=== PATIENT | female | born 2000 | race Caucasian/White ===

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

== ENCOUNTER → 2020-09-18 | Outpatient (CLI) | payer OTHER ==
[~2020-09-18] MED LIST: ACET325C5 PO; FLUCONAZOLE 50MG TABLET PO ONE; PRENTAB9 PO; TUMS500C PO
--- NOTE | 2020-09-18 15:57 | REP ---
INDICATION: GROWTH, SIZE LESS THEN DATES COMPARISON: None. TECHNIQUE: Transabdominal obstetrical ultrasound with color Doppler evaluation. FINDINGS: Examination demonstrates a single live intrauterine in cephalic presentation. motion is identified by technologist. Placenta is noted posterior and grade 2 without evidence for placenta previa or abruption. Amniotic fluid volume is normal. RADHA: 15.4 cm (7.3-24.0) Umbilical artery SD ratio: 2.66 (1.55-3.77) Gestational age by LMP 37 weeks [address] 10/03/2020. Gestational age by current measurements 34 weeks [address] 10/25/2020. FHR equals 155 beats per minute. Estimated weight 2538 grams (14thpercentile). IMPRESSION: Single live intrauterine in cephalic presentation. Estimated weight remains within normal range. <Electronically signed by Candelario Perez > 09/18/20 [id number]
== END ==
LOC: M RAD 14:27
PROVIDERS: ATTEND Obstetrics & Gynecology
DX: Z34.03 Encounter for supervision of normal first pregnancy, third trimester (principal); Z3A.34 34 weeks gestation of pregnancy

== ENCOUNTER 2020-09-19 07:00 | Inpatient (IN) | payer OTHER ==
[2020-09-19] VITALS (15 sets, daily range): BP systolic 103–148; BP diastolic 61–94
[~2020-09-19] VITALS: Ht 162.6 cm; Wt 57.6 kg
[2020-09-19] MEDS ORDERED: ACET325C5 PO (07:24)
[2020-09-19] MEDS ORDERED: PRENTAB9 PO (07:24)
[2020-09-19] MEDS ORDERED: TUMS500C PO (07:25)
--- NOTE | 2020-09-19 07:25 | HPEPDOC ---
Obstetrical History & Physical General Date of Admission Sep 19, 2020 at 07:00 History of Present Illness Ms. Newton is a 19yo at 38+0 with FGR diagnosed yesterday on [facility] scan meeti ng criteria for AC at 8%ile. She has had a downtrend in growth throughout her and has had close monitoring. Today she denied n/v/d, cp, sob, erickson, visual changes, f/c, vaginal bleeding, discharge, urinary sx, decreased FM, contractions, or LOF. Antepartum Course Pre- weight (lbs.): 110 Admission Weight (lbs.): 125 Change in Weight (lbs.): 15 Past Medical History Past Obstetrical History : Past Obstetrical History: [employer] History: History of STD (during ) Past Medical History Medical History depression Surgical History: Denies/None Family History Family History adopted, unknown family history Social History Family situation: Spouse/partner home Psychosocial History: No pertinent psych hx * Smoker: non-smoker Alcohol: Denies Drugs: denies Imunizations Tdap status: current Influenza Status: current Allergies Coded Allergies: azithromycin (Verified Allergy, Mild, 09/19/20) HIVES Medications Scheduled Calcium Carbonate (Tums) 200 Mg Tab.chew, 2 TAB PO QID for cough and congestion No.137/Iron/Folic Acd ( Vitamin Tablet) 1 Each Tablet, 1 TAB PO DAILY Miscellaneous Medications Acetaminophen (Tylenol) 325 Mg Capsule, 325 MG PO Physical Examination Physical Examination GENERAL: Alert and oriented times three. BREAST: . ABDOMEN: Gravid and non-tender to touch. FETUS: Is vertex (VTX) by sterile vaginal examination (SVE), fetus is vertex (VTX) by ultrasound HEART RATE: Regular rate and rhythm. LUNGS: Clear to auscultation (CTA). EXTREMITIES: No edema. No clonus. Laboratory Data Urine Culture: No Growth Pertinent Laboratoy Data Blood Type: A+ RBC Antibody Screen: Negative HIV: Negative Hepatitis B: Negative Rapid Plasma Reagin: Nonreactive Rubella: Immune Varicella: Immune Chlamydia/Gonorrhea: Positive Group B Streptococcus: Negative Cystic Fibrosis: Negative Anatomy Ultrasound Placenta Location: Anterior (fundal) Normal Anatomy: Yes Estimated Weight (grams): 2538 Steroid Therapy Steroid Therapy: No Vaginal Examination Dilation: 1cm Station: -3 Cervical Consistency: Firm Cervical Position: Posterior Presentation: Cephalic presentation (by US) Tocometer Multi-drug resistant Organism: No history of MDRO Assessment/Plan Assessment Ms. Newton is a 19yo at 38+0 with FGR diagnosed yesterday on [facility] scan meeting criteria for AC at 8%ile (SD 2.66) presents for IOL. She has had a downtrend in growth throughout her and has had close monitoring. CAT I tracing, reactive normal VS. 1/T/H plan for DLFB and augmentation with cytotec if indicated. APC 1. depression on zoloft 2. elevated early 1h GTT 3. allergy to azithromycin 4. gonorrhea and chlamydia during with negative test of cure 5. intrapartum mastitis s/p treatment Rh pos, GBS neg, placenta fundal posteiror, EFW 2538g, ceph by US Plan Admit and orient. It Auditor and consent. Diet: clears Group B Streptococcus (GBS) [negative]. Labs and intravenous (IV) per unit protocol. Counseled on Pitocin and induction of labor (IOL). Anticipate [normal spontaneous delivery ()]. C-S as appropriate. NANCY GROVE DO Sep 19, 2020 07:25
[2020-09-19 10:11] LABS: HEMATOCRIT 35.6 % (36.0-47.0); HEMOGLOBIN 11.4 g/dl (12.0-15.5); MEAN CORPUSCULAR VOLUME 87.5 fl (80.0-96.0); PLATELET COUNT, AUTOMATED 191 10^3/uL (150-450); RED BLOOD COUNT 4.07 10^6/uL (4.00-5.40); WHITE BLOOD COUNT 7.8 10^3/uL (4.0-10.0)
[2020-09-19] MEDS ORDERED: miSOPROStol 50MCG 1/2 TABLET PO ONE (11:30)
--- NOTE | 2020-09-19 12:18 | IPNPDOC ---
Text Note Date of Service The patient was seen on 09/19/20. NOTE Patient admitted IOL due to 8% weight slowly decreasing over monitoring period s/d ratio normal . contractions spaced with category 1 strip . pelvic examination 1 cm posterior 50% effaced -3 station thick. plan is to administer Po Cytotec 50 mg 1 dose reassessment 4 hours VS,Fishbone, I+O VS, Fishbone, I+O Item Value Date Time White Blood Count 7.8 10^3/uL 09/19/20 0953 Red Blood Count 4.07 10^6/uL 09/19/20 0953 Hemoglobin 11.4 g/dl L 09/19/20 0953 Hematocrit 35.6 % L 09/19/20 0953 Mean Corpuscular Volume 87.5 fl 09/19/20 0953 Mean Corpuscular Hemoglobin 28.0 pg 09/19/20 0953 Mean Corpuscular Hemoglobin Concent 32.0 g/dl 09/19/20 0953 Red Cell Distribution Width 13.5 % 09/19/20 0953 Platelet Count 191 10^3/uL 09/19/20 0953 Nucleated Red Blood Cells % (auto) 0.0 % 09/19/20 0953 Laboratory Tests 09/19/20 09:53 Vital Signs Date Time Temp Pulse Resp B/P (MAP) Pulse Ox O2 Delivery O2 Flow Rate FiO2 09/19/20 08:45 98.3 93 18 116/71 (86) Rashaun Ibarra MD Sep 19, 2020 12:18
--- NOTE | 2020-09-19 16:00 | IPNPDOC ---
Text Note Date of Service The patient was seen on 09/19/20. NOTE 09/19/20 1547 PM review of progress. had misoprostol 50 mg Po 4 hours ago now cervix soft no change in dilation category 1 strip contractions spaced out q 5 minutes . reviewed Pitocin augmentation . still difficult for Mcneil's catheter. expressed understanding safe to proceed VS,Ramonebone, I+O VS, Fishbone, I+O Laboratory Tests 09/19/20 09:53 Vital Signs Date Time Temp Pulse Resp B/P (MAP) Pulse Ox O2 Delivery O2 Flow Rate FiO2 09/19/20 08:45 98.3 93 18 116/71 (86) Rashaun Ibarra MD Sep 19, 2020 15:54
[2020-09-19] MEDS ORDERED: OXYTOCIN DRIP 30 UNITS in IV 1 EA IV SCH (16:15)
[2020-09-19] MEDS: LR 1,000 ML IV SCH (17:13)
[2020-09-19] MEDS ORDERED: LR 1,000 ML IV ONE (19:05)
--- NOTE | 2020-09-19 19:08 | IPNPDOC ---
Text Note Date of Service The patient was seen on 09/19/20. NOTE 1900 hours occasional episodes tachysystole on 2 munits Pitocin, category 1 strip approached patient with Mcneil's catheter 60 ml uterine 40 ml cervix . safe to proceed VS,Eden, I+O VS, Eden, I+O Laboratory Tests 09/19/20 09:53 Vital Signs Date Time Temp Pulse Resp B/P (MAP) Pulse Ox O2 Delivery O2 Flow Rate FiO2 09/19/20 08:45 98.3 93 18 116/71 (86) Rashaun Ibarra MD Sep 19, 2020 19:08
[2020-09-19] MEDS ORDERED: PROMETHAZINE INJ 25 MG/ML VIAL (J2550) IV ONE (20:20)
[2020-09-19] MEDS ORDERED: BUTORPHANOL 2 MG/ML INJ (J0595) IV ONE (20:20)
[2020-09-19] MEDS ORDERED: FENTANYL 2MCG/ML ROPIVACAINE 0.2% IN 0.9% NACL 100ML IVBAG As Ordered ONE (23:24)
[2020-09-20] VITALS (37 sets, daily range): BP systolic 99–148; BP diastolic 54–98
[2020-09-20] MEDS ORDERED: ePHEDrine SULFATE 25 MG/5 ML(5MG/ML) SYRINGE IV PRN (00:45)
[2020-09-20] MEDS ORDERED: diphenhydrAMINE 50MG/ML VIAL (J1200) IV PRN (00:45)
[2020-09-20] MEDS ORDERED: LACTATED RINGER'S 1000 ML IV PRN (00:45)
[2020-09-20] MEDS ORDERED: EPIDURAL COMMENT XX SCH (00:45)
[2020-09-20] MEDS ORDERED: FENTANYL/ROPIVACAINE/NACL BAG 100 ML EPIDURAL SCH (00:45)
[2020-09-20] MEDS ORDERED: NALOXONE INJ 0.4MG/1ML VIAL (J2310 PER 1MG) IV PRN (00:45)
[2020-09-20] MEDS ORDERED: ONDANSETRON 4MG/2ML VIAL IV PRN (00:45)
[2020-09-20] MEDS ORDERED: REFRIGERATOR IV KEYS XX PRN (00:45)
[2020-09-20] MEDS ORDERED: EPIDURAL/PCA KEYS XX PRN (00:45)
[2020-09-20] MEDS: LR 1,000 ML IV SCH (01:05)
--- NOTE | 2020-09-20 04:30 | IPNPDOC ---
Text Note Date of Service The patient was seen on 09/20/20. NOTE 07/23/20 0430 am Mcneil's catheter removed , cervix anterior 2-3 cm soft -2 s tation ot position AROM clear fluid category 1 strip . safe to proceed VS,Fishbone, I+O VS, Fishbone, I+O Laboratory Tests 09/19/20 09:53 Vital Signs Date Time Temp Pulse Resp B/P (MAP) Pulse Ox O2 Delivery O2 Flow Rate FiO2 09/20/20 00:47 83 110/71 (84) 09/20/20 00:35 15 09/19/20 15:30 97.8 I&O- Last 24 Hours up to 6 AM 09/20/20 06:00 Intake Total 1000 ml Output Total 850 ml Balance 150 ml Rashaun Ibarra MD Sep 20, 2020 04:30
--- NOTE | 2020-09-20 07:58 | IPNPDOC ---
Text Note Date of Service The patient was seen on 09/20/20. NOTE 09/20/2020 0800 evaluation post AROM AND PITOCIN AT [address] RIP, 4 CM ANTERIOR 100% EFFACED -1 STATION WELL APPLIED . SAFE TO PROCEED VS,Fishbone, I+O VS, Fishbone, I+O Laboratory Tests 09/19/20 09:53 Vital Signs Date Time Temp Pulse Resp B/P (MAP) Pulse Ox O2 Delivery O2 Flow Rate FiO2 09/20/20 06:26 71 124/71 (88) 09/20/20 00:35 15 09/19/20 15:30 97.8 I&O- Last 24 Hours up to 6 AM 09/20/20 06:00 Intake Total 1000 ml Output Total 850 ml Balance 150 ml Rashaun Ibarra MD Sep 20, 2020 07:58
[2020-09-20 10:13] LABS: CORD GAS HCO3 A 17.4 MEQ/L; CORD GAS O2 SAT A 94.2 %; CORD GAS PCO2 A 29.1 mmHg; CORD GAS PH A 7.394 UNITS; CORD GAS PO2 A 52.9 mmHg; CORD GAS SBC A 19.6 MEQ/L; CORD GAS TCO2 A 18.3 MEQ/L
[2020-09-20 10:17] LABS: CORD GAS ABE V -5.5; CORD GAS HCO3 V 17.9 MEQ/L; CORD GAS O2 SAT V 88.1 %; CORD GAS PCO2 V 29.7 mmHg; CORD GAS PH V 7.397 UNITS; CORD GAS PO2 V 40.6 mmHg; CORD GAS SBC V 19.8 MEQ/L; CORD GAS TCO2 V 18.8 MEQ/L
--- NOTE | 2020-09-20 10:53 | DNPDOC ---
[facility] Delivery Note Delivery Note DATE OF DELIVERY: 09/20/2020 PREDELIVERY DIAGNOSIS: 38.0 weeks' gestation iol re sga at 8% POST DELIVERY DIAGNOSIS: Delivered. PROCEDURE: [Spontaneous vaginal delivery P[employer]ER [employer] P[employer]P MILL WORKER: ANESTHESIA: IV MEDS , EPIDURAL ESTIMATED BLOOD LOSS: 200 mL. FINDINGS: 5 pound 10 ounce FEMALE Score 9/9 , nuchal cord 0 DELIVERY SUMMARY: Patient is a 19-year-old 1 now para 1who was admitted to labor and delivery for IOL . LIVE BIRTY FEMALE OVER INTACT PERINEUM SPHINCTER INTACT LATERAL AND ANTERIOR AND POSTERIOR DE LA CRUZ INTACT PLACENTA INTACT. UTERUS CONTRACTED UNDER PITOCIN Item Value Date Time Cord Arterial Blood pH 7.394 UNITS 09/20/20 1004 Cord Arterial Blood PCO2 29.1 mmHg 09/20/20 1004 Cord Arterial Blood PO2 52.9 mmHg 09/20/20 1004 Cord Arterial Blood HCO3 17.4 MEQ/L 09/20/20 1004 Cord Arterial Blood Total CO2 18.3 MEQ/L 09/20/20 1004 Cord Arterial Blood Base Excess -6.0 09/20/20 1004 Cord Arterial Base Excess (Standard 19.6 MEQ/L 09/20/20 1004 Cord Arterial Bld Oxygen Saturation 94.2 % 09/20/20 1004 Cord Venous Blood pH 7.397 UNITS 09/20/20 1004 Cord Venous Blood PCO2 29.7 mmHg 09/20/20 1004 Cord Venous Blood PO2 40.6 mmHg 09/20/20 1004 Cord Venous Blood HCO3 17.9 MEQ/L 09/20/20 1004 Cord Venous Blood Total CO2 18.8 MEQ/L 09/20/20 1004 Cord Venous Base Excess (Actual) -5.5 09/20/20 1004 Cord Venous Base Excess (Standard) 19.8 MEQ/L 09/20/20 1004 Cord Venous Blood Oxygen Saturation 88.1 % 09/20/20 1004 Rashaun Ibarra MD Sep 20, 2020 10:53
[2020-09-20] MEDS ORDERED: ANUSOL HC CREAM 30GM TOP PRN (10:55)
[2020-09-20] MEDS ORDERED: OXYTOCIN INJ 10 UNITS/ML VIAL (J2590) IV ONE (10:55)
[2020-09-20] MEDS ORDERED: METHYLERGONOVINE MALEATE 0.2 MG TAB PO PRN (10:55)
[2020-09-20] MEDS ORDERED: MOM 30ML SUSPENSION UDC PO PRN (10:55)
[2020-09-20] MEDS ORDERED: ACETAMINOPHEN TAB 650MG DOSE (2X325MG) PO PRN (10:55)
[2020-09-20] MEDS ORDERED: MEASLES,MUMPS,RUBELLA VACCINE INJ (MMR-II) (90707) SC SCH (10:55)
[2020-09-20] MEDS ORDERED: DIBUCAINE 1% OINTMENT 30GM TOP PRN (10:55)
[2020-09-20] MEDS ORDERED: IBUPROFEN 600MG TAB PO PRN (10:55)
[2020-09-20] MEDS ORDERED: RHOGAM 300 MCG (1500 IU) INJ (J2790) IM SCH (10:55)
[2020-09-20] MEDS ORDERED: OXYTOCIN DRIP 30 UNITS in IV 1 EA IV ONE (10:55)
[2020-09-20] MEDS: PRENATAL VITAMINS CHEWABLE TABLET PO SCH (12:58)
[2020-09-20] MEDS: IBUPROFEN 800 MG TAB PO PRN (12:59)
[2020-09-20] MEDS: SERTRALINE HCL 25 MG TABLET PO SCH (14:19)
[2020-09-20] MEDS: DOCUSATE SODIUM 100MG CAPSULE PO PRN (21:18)
[2020-09-21] MEDS: IBUPROFEN 800 MG TAB PO PRN ×2 (01:07→12:49)
[2020-09-21 06:00] VITALS: BP 110/66
[2020-09-21 07:08] LABS: HEMATOCRIT 31.8 % (36.0-47.0); HEMOGLOBIN 10.1 g/dl (12.0-15.5); MEAN CORPUSCULAR HEMOGLOBIN 27.9 pg (27.0-33.0); MEAN CORPUSCULAR HGB CONC 31.8 g/dl (32.0-36.5); MEAN CORPUSCULAR VOLUME 87.8 fl (80.0-96.0); PLATELET COUNT, AUTOMATED 161 10^3/uL (150-450); RED BLOOD COUNT 3.62 10^6/uL (4.00-5.40); WHITE BLOOD COUNT 9.1 10^3/uL (4.0-10.0)
[2020-09-21] MEDS: PRENATAL VITAMINS CHEWABLE TABLET PO SCH (10:02)
[2020-09-21] MEDS: SERTRALINE HCL 25 MG TABLET PO SCH (10:03)
--- NOTE | 2020-09-21 10:15 | IPN ---
PROGRESS NOTE DATE: 09/21/2020 This is a 19-year-old 1, now para 1, admitted at 38 weeks of gestation because of a small for gestational age induction of labor. She had an epidural in place plus IV medications. Delivered a live female infant, 5 pounds, 10 ounces, 2540 grams, scores of 9 and 9 at 1 and 5 minutes, respectively. Arterial pH 7.39, base excess -6.0, venous pH 7.39, base excess -5.5. On her first day we discussed phlebitis, cystitis, mastitis, endometritis, and cellulitis, diet, exercise, pain management, perineal and breast care. Her admitting hemoglobin is 11.4, hematocrit 35.6, and platelets were 191. Her day #1 hemoglobin is pending. Her vital signs today: Her blood pressure is 110/66, respirations are 16, pulse 54, temperature is 98.5. The rest of the examination is unremarkable. Normocephalic, atraumatic. Neck full range of motion. Pupils equal and reactive to light. Distal pulses are symmetric. No evidence of deep venous thrombosis (DVT), pulmonary embolus (PE), or superficial phlebitis. Chest is clear bilaterally to the bases. No wheezes or rhonchi. No costovertebral angle (CVA) tenderness. Abdomen is soft, four quadrant bowel sounds are noted. Uterus two below, lochia is moderate. 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 She has a 6 week checkup at [facility] ([facility]). Will maintain her Zoloft 75 mg every morning for her depression. Presently, she is and doing well.
[2020-09-21 14:00] VITALS: BP 108/68
[2020-09-21 18:00] VITALS: BP 129/72
[2020-09-21] MEDS: ACETAMINOPHEN 500 MG TAB PO PRN (20:10)
[2020-09-22] MEDS: IBUPROFEN 800 MG TAB PO PRN ×2 (02:50→17:30)
--- NOTE | 2020-09-22 05:08 | IPNPDOC ---
Progress Note Date of Service: Sep 22, 2020 Day#: 2 Progress Note SUBJECT: Alexandra is a 19yo s/p after IOL for IUGR, doing well day # 2. She has been ambulating, voiding spontaneously without issue and tolerating regular diet. She has had significant difficulties with infant latching so she is pumping and supplementing with formula. Reports lochia is decreasing. Pain is controlled. OBJECTIVE: VITAL SIGNS: Within normal limits, afebrile. Alert and oriented times three. Abdomen: Fundus firm at U-2. Soft, NTTP. ASSESSMENT: Alexandra is a 19yo s/p after IOL for IUGR, doing well day # 2. Vitals within normal limits, afebrile, hemodynamically stab le with no evidence of infection. Discussed ACS and WIC services and emphasized importance to patient to enroll on waitlist for [facility] day[facility] on[place]post [place]. Discussed care plan. PLAN: 1. Discharge to home today. 2. Tylenol and Motrin for pain, patient has yet to olive picker discharge meds from [place] but will have friend do so today. 3. Encourage breast feeding, consultation. 4. Encourage regular diet and ambulation OOB as tolerated. 5. Routine PP visit in 6 weeks in clinic. 6. Discussed return precautions at length. VS, I&O, 24H, Fishbone Vital Signs/I&O Vital Signs Date Time Temp Pulse Resp B/P (MAP) Pulse Ox O2 Delivery O2 Flow Rate FiO2 09/21/20 18:00 98.2 86 14 129/72 (91) 09/21/20 14:00 97 Room Air Laboratory Data 24H LABS Laboratory Tests 2 09/21/20 06:23: Nucleated Red Blood Cells % (auto) 0.0 CBC/BMP Laboratory Tests 09/21/20 06:23 VESTA HERNANDES DO Sep 22, 2020 05:08
[2020-09-22 06:11] VITALS: BP 140/80
[2020-09-22] MEDS: PRENATAL VITAMINS CHEWABLE TABLET PO SCH (09:00)
[2020-09-22] MEDS: SERTRALINE HCL 25 MG TABLET PO SCH (10:01)
[2020-09-22 18:06] VITALS: BP 131/76
[2020-09-22] MEDS: DOCUSATE SODIUM 100MG CAPSULE PO PRN (19:55)
[2020-09-23 05:59] VITALS: BP 116/66
[2020-09-23] MEDS: ACETAMINOPHEN 500 MG TAB PO PRN (06:05)
[2020-09-23] MEDS ORDERED: IBUP-1022 PO (07:04)
[2020-09-23] MEDS ORDERED: DOK1CAP7 PO (07:04)
[2020-09-23] MEDS: PRENATAL VITAMINS CHEWABLE TABLET PO SCH (07:55)
== END 2020-09-23 16:15 | disposition home or self-care (01) | DRG 807 ==
LOC: M LDI 07:00 → M OBS 09-20 14:54
PROVIDERS: ADMIT Obstetrics & Gynecology; ATTEND Obstetrics & Gynecology
PROC: 3E0DXGC Introduction of Other Therapeutic Substance into Mouth and Pharynx, External Approach (ICD-10-PCS; 2020-09-19)
PROC: 3E033VJ Introduction of Other Hormone into Peripheral Vein, Percutaneous Approach (ICD-10-PCS; 2020-09-19)
PROC: 10E0XZZ Delivery of Products of Conception, External Approach (ICD-10-PCS; principal; 2020-09-20)
DX: O36.5910 Maternal care for other known or suspected poor fetal growth, first trimester, not applicable or unspecified (principal); Z37.0 Single live birth; O36.5920 Maternal care for other known or suspected poor fetal growth, second trimester, not applicable or unspecified; O36.5930 Maternal care for other known or suspected poor fetal growth, third trimester, not applicable or unspecified; Z3A.38 38 weeks gestation of pregnancy; F32.9 Major depressive disorder, single episode, unspecified; O99.344 Other mental disorders complicating childbirth; Z11.3 Encounter for screening for infections with a predominantly sexual mode of transmission

== ENCOUNTER 2021-04-16 15:27 | Emergency (ER) | payer OTHER ==
[~2021-04-16] VITALS: Ht 162.6 cm; Wt 46.2 kg
[~2021-04-16 15:27] MED LIST changes: +DOK1CAP4 PO; -FLUCONAZOLE 50MG TABLET PO ONE; +IBUP-1022 PO
[2021-04-16] MEDS ORDERED: ACETAMINOPHEN 500 MG TAB PO ONE (17:30)
[2021-04-16] MEDS ORDERED: VITMTA PO (18:36)
[2021-04-16] MEDS ORDERED: ZOLO50TA PO (18:36)
[2021-04-16] MEDS ORDERED: CETI-24 PO (18:36)
--- NOTE | 2021-04-16 18:36 | REP ---
INDICATION: pelvic pain x6 days, IUD removed on 03/29 COMPARISON: None. TECHNIQUE: Transabdominal pelvic ultrasound followed by transvaginal examination for better evaluation of the endometrium and adnexa with color Doppler evaluation of the ovaries. FINDINGS: Bladder is unremarkable and measures 5.4 x 2.8 x 1.5 cm. Normal anteverted uterus measures 7.8 x 3.6 x 4.7 cm. The endometrial complex measures 10 mm thickness. No discrete uterine or endometrial abnormalities are appreciated. Bilateral ovaries are normal in appearance and vascularity without evidence for torsion. Right ovary measures 4.2 x 1.5 x 2.5 cm; R I = 0.66. Left ovary measures 3.0 x 1.5 x 2.0 cm; R I = 0.61. Trace pelvic free fluid is nonspecific and likely physiologic. IMPRESSION: Normal pelvic ultrasound. <Electronically signed by Candelario Perez > 04/16/21 [id number]
[2021-04-16 18:44] LABS: BASO % 0.3 % (0.0-1.0); EOS # 0.1 10^3/uL (0.0-0.5); EOS % 0.8 % (0.0-3.0); HEMATOCRIT 42.8 % (36.0-47.0); HEMOGLOBIN 14.1 g/dl (12.0-15.5); LYMPH % 25.8 % (24.0-44.0); MEAN CORPUSCULAR HEMOGLOBIN 28.7 pg (27.0-33.0); MEAN CORPUSCULAR HGB CONC 32.9 g/dl (32.0-36.5); MONO # 0.5 10^3/uL (0.0-0.8); MONO % 6.5 % (2.0-8.0); NEUTROPHILS # 5.1 10^3/uL (1.5-8.5); NEUTROPHILS % 66.3 % (36.0-66.0); PLATELET COUNT, AUTOMATED 317 10^3/uL (150-450); RED BLOOD COUNT 4.92 10^6/uL (4.00-5.40); WHITE BLOOD COUNT 7.7 10^3/uL (4.0-10.0)
[2021-04-16 19:12] LABS: ALBUMIN 4.1 GM/DL (3.2-5.2); BILIRUBIN,DIRECT 0.1 MG/DL (0.0-0.2); BILIRUBIN,TOTAL 0.4 MG/DL (0.2-1.0); TOTAL PROTEIN 7.8 GM/DL (6.4-8.2)
[2021-04-16 20:12] LABS: GC DNA AMPLIFICATION NEGATIVE (NEGATIVE)
[2021-04-16] MEDS ORDERED: DOXY1CAP62 PO (20:30)
[2021-04-16] MEDS ORDERED: DOXYCYCLINE HYCLATE 100MG TABLET PO ONE (20:30)
[2021-04-16] MEDS ORDERED: FLAG500T PO (20:30)
[2021-04-16] MEDS ORDERED: MACR100C43 PO (20:34)
[2021-04-16] MEDS ORDERED: metroNIDAZOLE (FLAGYL) 500MG TABLET PO ONE (20:35)
[2021-04-16 20:46] VITALS: BP 132/70
[2021-04-16 21:27] LABS: GC DNA AMPLIFICATION NEGATIVE (NEGATIVE)
[2021-04-18] MEDS ORDERED: CEPH500C PO (11:59)
== END 2021-04-16 20:58 | disposition home or self-care (01) ==
LOC: M ED 15:27
DX: N39.0 Urinary tract infection, site not specified (principal); N72 Inflammatory disease of cervix uteri; A74.9 Chlamydial infection, unspecified; Z88.1 Allergy status to other antibiotic agents

== ENCOUNTER 2021-07-12 20:20 | Emergency (ER) | payer OTHER ==
[~2021-07-12] VITALS: Ht 162.6 cm; Wt 45.7 kg
[~2021-07-12 20:20] MED LIST changes: +CEPH500C PO; +CETI-24 PO; +DOXY-443 PO; +FLAG500T PO; +MACR100C43 PO; +VITMTA PO; +ZOLO50TA PO
[2021-07-12] MEDS ORDERED: LOES1TAB7 PO (20:34)
[2021-07-12] MEDS ORDERED: ACET-910 PO (20:38)
[2021-07-13] MEDS ORDERED: KETOROLAC 30 MG/ML 1ML VIAL IV ONE (04:30)
[2021-07-13] MEDS ORDERED: NS 1,000 ML IV ONE (04:30)
[2021-07-13] MEDS ORDERED: ONDANSETRON 4MG/2ML VIAL IV ONE (04:30)
[2021-07-13 04:42] LABS: BASO % 0.2 % (0.0-1.0); EOS % 0.9 % (0.0-3.0); HEMATOCRIT 40.8 % (36.0-47.0); HEMOGLOBIN 13.5 g/dl (12.0-15.5); LYMPH # 0.8 10^3/uL (1.5-5.0); LYMPH % 17.5 % (24.0-44.0); MEAN CORPUSCULAR HEMOGLOBIN 29.7 pg (27.0-33.0); MEAN CORPUSCULAR HGB CONC 33.1 g/dl (32.0-36.5); MEAN CORPUSCULAR VOLUME 89.9 fl (80.0-96.0); MONO # 0.4 10^3/uL (0.0-0.8); MONO % 8.8 % (2.0-8.0); NEUTROPHILS # 3.1 10^3/uL (1.5-8.5); NEUTROPHILS % 72.4 % (36.0-66.0); PLATELET COUNT, AUTOMATED 267 10^3/uL (150-450); RED BLOOD COUNT 4.54 10^6/uL (4.00-5.40); WHITE BLOOD COUNT 4.3 10^3/uL (4.0-10.0)
[2021-07-13 05:05] LABS: BLOOD UREA NITROGEN 13 MG/DL (7-18); CALCIUM LEVEL 8.7 MG/DL (8.5-10.1); CARBON DIOXIDE LEVEL 23 MEQ/L (21-32); CHLORIDE LEVEL 112 MEQ/L (98-107); CREATININE FOR GFR 0.68 MG/DL (0.55-1.30); GLUCOSE, FASTING 95 MG/DL (70-100); POTASSIUM SERUM 3.8 MEQ/L (3.5-5.1); SODIUM LEVEL 144 MEQ/L (136-145)
[2021-07-13 05:21] LABS: RSV AMPLIFICATION NEGATIVE (NEGATIVE)
[2021-07-13 06:11] VITALS: BP 118/59
== END 2021-07-13 06:26 | disposition home or self-care (01) ==
LOC: M ED 20:20
DX: U07.1 COVID-19 (principal); Z88.1 Allergy status to other antibiotic agents
CPT/HCPCS: 80048; 85025; 87631; 96361; 96374; 99284; J1885; J2405